=== PATIENT | male | born 1985 | race Two or more races ===

== ENCOUNTER 2024-01-02 09:48 | Emergency (ER) | payer BC ==
[~2024-01-02] VITALS: Ht 182.9 cm; Wt 104.8 kg
[2024-01-02] MEDS ORDERED: IBUPROFEN 600 MG TABLET ONE (10:22)
[2024-01-02] MEDS: IBUPROFEN 600 MG TABLET PO ONE (10:23)
[2024-01-02 10:43] VITALS: BP 138/82; TEMP 98.7; O2SAT 97
== END 2024-01-02 10:43 | disposition home or self-care (01) ==
LOC: ER 10:17
DX: S00.81XA Abrasion of other part of head, initial encounter (principal); Y04.8XXA Assault by other bodily force, initial encounter; Y93.89 Activity, other specified; Y92.89 Other specified places as the place of occurrence of the external cause; Y99.8 Other external cause status